=== PATIENT | female | born 1950 | race Caucasian/White ===

== ENCOUNTER 2023-10-03 14:29 | Emergency (ER) | payer MEDICARE, SELFPAY ==
[2023-10-03 14:31] VITALS: BP 122/63; PULSE 102; RESP 18; TEMP 36.1; O2SAT 99
--- NOTE | 2023-10-03 15:21 | RAD_ITS ---
STUDY: X-RAY - PELVIS REASON FOR EXAM: Female, 72 years old. Injury/Pain TECHNIQUE: One view of the pelvis was obtained. COMPARISON: None. FINDINGS: There is a non-specific bowel gas pattern. Normal visualized soft tissue structures. Normal bilateral iliac wings, sacroiliac joints and visualized sacrum. Normal visualized bilateral superior and inferior pubic rami. Normal pubic symphysis. Normal ischial tuberosities. No definitive evidence for acute pelvic or hip fracture . However views of the hips is limited and routine study of the hips is recommended for further evaluation if clinically warranted RAD/Pelvis 1 or 2 Views IMPRESSION: No evidence for acute pelvic fracture or definitive evidence for hip fracture Electronically Signed: Matt Johnson MD at 16:53 EST Reading Location ID and State: [facility] / [place] Tel , Service support ,
--- NOTE | 2023-10-03 15:21 | RAD_ITS ---
STUDY: X-RAY - CERVICAL SPINE REASON FOR EXAM: Female, 72 years old. Injury/Pain TECHNIQUE: 4 view(s) of the cervical spine were obtained. COMPARISON: None FINDINGS: Normal anterior atlantoaxial articulation. Normal odontoid process. Loss of normal lordotic curvature possibly due to muscle spasm or positioning artifact. No evidence for acute fracture or subluxation. Grade 1 spondylolisthesis at C5-6 Narrowed C4-5, C5-6 and C6-7 disc spaces with endplate spurring The soft tissue structures are unremarkable. RAD/Cerv Spine 2 or 3 Views IMPRESSION: Moderate spondylosis. No acute fracture or subluxation Electronically Signed: Matt Johnson MD at 16:59 EST ,
--- NOTE | 2023-10-03 15:21 | RAD_ITS ---
STUDY: X-RAY - THORACIC SPINE REASON FOR EXAM: Female, 72 years old. Injury/Pain TECHNIQUE: AP and lateral view(s) of the thoracic spine were obtained. COMPARISON: None. FINDINGS: Normal kyphosis of the thoracic spine. There is no substantial scoliosis. No evidence for acute fracture or subluxation. No lytic or sclerotic bony lesions. Minor multilevel disc space narrowing and endplate spurring. The soft tissue structures are unremarkable. RAD/Thoracic Spine 3 Views IMPRESSION: Mild spondylosis. No acute fracture or subluxation Electronically Signed: Matt Johnson MD at 16:54 EST ,
--- NOTE | 2023-10-03 15:21 | RAD_ITS ---
STUDY: X-RAY - LUMBAR SPINE REASON FOR EXAM: Female, 72 years old. Injury/Pain TECHNIQUE: AP and lateral view(s) of the lumbar spine were obtained. COMPARISON: None FINDINGS: Normal lumbar lordosis. There is no substantial scoliosis. There is a normal alignment of the vertebrae. There is mild wedging of the anterior superior endplate of L2 and subtle radiolucency suggesting acute fracture. Disc space heights are well-maintained although there is mild multilevel endplate spurring.. The soft tissue structures are unremarkable. RAD/Lumbar Spine 2 or 3 Views IMPRESSION: Suspect acute mild compression of anterior superior endplate of L2. CT would be useful for more definitive evaluation if indicated Electronically Signed: Matt Johnson MD at 16:57 EST ,
--- NOTE | 2023-10-03 15:38 | EDS_ITS ---
HPI History of Present Illness Chief Complaint: Fall Detail of Chief Complaint: Injury to neck, upper and lower back due to fall Informant: patient Onset/Context/Timing Onset: Today and Hours Mechanism/Context: Blunt Injury and Fall Quality of Pain: - (Mid and lower back as well as neck) Current Severity: Mild Worsened by: Movement and palpation Relieved by: Nothing Associated Symptoms Associated Symptoms: Negative for Parasthesias, Weakness, Loss of function, Inability to ambulate, Loss of consciousness or Amnesia Narrative Narrative: Patient is a 72-year-old woman with history of alcoholism who recently went thro [facility]. She presents after fall getting out of car. She had dizziness. She had dizziness for years. They attributed this to her alcohol use. She denies headache, visual, ocular auditory symptoms. Denies ringing in ears or decreased hearing. She denies neck pain. She denies paresthesia, anesthesia motors upper or lower extremity. She denies chest pain or shortness of breath. She denies nausea or vomiting. She urinated and did not noted blood. Prior similar symptoms: No Recent Illness/Hospitalization: No PFSH PFSH Allergy/AdvReac Type Severity Reaction Status Date / Time bacitracin Allergy Intermediate Swelling Verified 10/03/23 14:34 [From Triple Antibiotic] neomycin Allergy Intermediate Swelling Verified 10/03/23 14:34 [From Triple Antibiotic] polymyxin B Allergy Intermediate Swelling Verified 10/03/23 14:34 [From Triple Antibiotic] propranolol [From Inderal LA] Allergy Intermediate Shortness Verified 10/03/23 14:34 of breath omeprazole [From Prilosec] AdvReac Intermediate Angioedema Verified 10/03/23 14:34 biotin AdvReac Mild Vomiting Verified 10/03/23 14:34 bupropion [From Wellbutrin] AdvReac Mild RASH Verified 10/03/23 14:34 Social History (Updated 10/03/23 @ 15:[address] Neo Hurley MD) Smoking Status: Never smoker alcohol intake: former substance use type: does not use ROS ROS ED Constitutional Constitutional ED: Denies chills or fever(s) Eyes Eyes: Denies blurry vision or change in vision ENT ENT ED: Reports other Details: Denies ringing or ears or decreased hearing. ; Denies ear pain, rhinorrhea or sore throat Cardiovascular Cardiovascular: Denies chest pain or palpitations Respiratory/Chest Respiratory/Chest: Denies cough, dyspnea or dyspnea on exertion Gastrointestinal Gastrointestinal: Denies abdominal pain, nausea or vomiting Genitourinary Genitourinary ED: Denies dysuria, hematuria or urinary frequency Musculoskeletal Musculoskeletal: Reports back pain; Denies arthralgias, myalgias or neck pain Integumentary Denies Abrasions or rash Neurologic Neurologic: Denies headache(s), paresthesias or weakness Endocrine Endocrinology: Denies cold intolerance or heat intolerance Hematologic/Lymphatic Hematologic/Lymphatic: Denies easy bleeding or easy bruising EXAM Physical Exam Const Vital Signs: 10/03/23 14:31 10/03/23 14:32 Temperature 96.9 F L Temperature Source Temporal Pulse Rate 102 H Respiratory Rate 18 Respiratory Effort Normal Respiratory Depth Normal Respiratory Pattern Normal Blood Pressure 122/63 H Blood Pressure Mean 82 Pulse Ox 99 Oxygen Delivery Method Room Air Positive well nourished and well developed General Appearance ED: well developed and NAD HEENT Reports TM's clear atraumatic; Negative for tenderness Nose: Negative for septum abnormal Tympanic Membrane ED: Yes TM's clear Eyes PERRL and EOMs intact bilaterally General Eye ED: Yes other Other Details: There is no subconjunctival hemorrhage. There is no nystagmus. Neck full ROM Neck Narrative: Patient grimaces with flexion and rotation of the right or left. She did not have midline tenderness prior to testing range of motion. Chest Wall inspection of chest normal and palpation of chest normal Resp normal respiratory effort and clear to auscultation bilaterally Cardio regular rhythm, S1 normal heart sound, S2 normal heart sound and no murmurs Rate: regular rate GI normal to inspection, nondistended, normoactive bowel sounds, non-tender, non- distended and no masses Palpation: soft Back/Spine normal to inspection; Negative for no thoracic nor lumbar tenderness Back/Spine Narrative: There is pain outpatient lower lumbar vertebrae. There is no pain ovation over the iliac wing right or left. There is no pain the patient with the pubic symphysis. General Back: Negative for CVA tenderness Thoracic Spine / Upper Back: thoracic spinal tenderness T10, T11 and T12 Lumbar Spine / Lower Back: straight leg raise negative bilaterally Extremity normal to inspection and full ROM Extremity Narrative: Terrence Rosalinda 4 test causes no pain in the hip or low back. General Extremety ED: Negative for deformity General Extremity: Negative for deformity Neuro oriented x3, CN's II-XII intact bilaterally, moves all extremities, no focal motor deficits and no sensory deficits noted [place] Coma Scale: document GCS findings Spontaneous Obeys Commands Oriented 15 Plantar Reflex: Downgoing: bilateral Psych mental status grossly normal and thought process normal Skin no rashes or lesions noted, no wounds, skin turgor normal and no jaundice MDM MDM MDM Narrative Medical decision making narrative: C-spine cannot be cleared per Nexus criteria imaging was obtained. Imaging of the thoracic and lumbar vertebrae were obtained as well. Because of her pain in the right inguinal area x-ray of the pelvis was obtained to assess for superior pubic rami fracture. She apparently landed on her right side. Radiography Chest X-Ray - ED: Read by ED Physician Diagnostic Testing: Clinical Impression(s) from Imaging Studies Cervical Spine X-Ray 10/03/23 15:21 IMPRESSION: Moderate spondylosis. No acute fracture or subluxation Electronically Signed: Matt Johnson MD at 16:59 EST Reading Location ID and State: [facility] / [place] Tel [phone], Service support , Lumbar Spine X-Ray 10/03/23 15:21 IMPRESSION: Suspect acute mild compression of anterior superior endplate of L2. CT would be useful for more definitive evaluation if indicated Electronically Signed: Matt Johnson MD at 16:57 EST , Pelvis X-Ray 10/03/23 15:21 IMPRESSION: No evidence for acute pelvic fracture or definitive evidence for hip fracture Electronically Signed: Matt Johnson MD at 16:53 EST , Thoracic Spine X-Ray 10/03/23 15:21 IMPRESSION: Mild spondylosis. No acute fracture or subluxation Electronically Signed: Matt Johnson MD at 16:54 EST , 3 views x-ray of the cervical spine was obtained. Patient has no evidence of fracture, subluxation dislocation. There is no prevertebral soft tissue s welling. There is minimal degenerative changes noted. 2 view x-ray of thoracic spine reveals minimal degenerative changes with atherosclerotic disease of the aorta. There is no dilatation. There is no fracture or subluxation noted. 2 view x-ray of the LS-spine reveals minimal degenerative changes. There is atherosclerotic disease of the distal aorta and iliacs. There is no evidence of fracture, dislocation or subluxation. There is no evidence of spondylolisthesis or spondylosis. Single view x-ray of the pelvis is negative for fracture or any abnormality. Nonseptic gas pattern was noted. All films were independent reviewed interpreted by me at 1606. Treatment and Re-Evaluation Narrative: Patient was reassessed at 1700. Patient does report improvement. She was told that she will feel worse and hurt more places over the next 24 to 48 hours and will hurt for several days if not up to a week Discharge Plan Triage Chief Complaint: Fall ED Provider: Neo Hurley Dx/Rx/DC Orders Clinical Impression: Injury due to fall, Acute cervical myofascial strain, Acute midline thoracic back pain, Contusion of pelvis, Acute lumbosacral myofascial strain Instructions: ED Back Sprain/Strain, ED Neck Sprain or Strain Primary Care Provider: Zheng Kwan Referrals: Zheng Kwan MD [Primary Care Provider] - 1 Week if not improving Activity Restrictions/Additional Instructions: 1. You may take 4 ibuprofen tablets every 8 hours or 2 Aleve tablets every 12 hours for next 3 to 5 days 2. Apply ice to areas of discomfort 6-10 times a day for the next 3 to 5 days. 3. Do not use heat because this may make your pain worse 4. You may hurt in more places and you presently do 5. You may hurt for 3-7 more days Disposition Disposition: Home, Self Care
[2023-10-03] MEDS: Ketorolac 30 MG/ML Syringe IM (16:13)
[2023-10-03 17:30] VITALS: BP 146/76; PULSE 89; RESP 16; TEMP 36.4; O2SAT 99; BMI 31.5
== END 2023-10-03 17:31 | disposition home or self-care (01) ==
PROVIDERS: Emergency Provider Emergency Medicine; PCP Internal Medicine; Visit Provider Emergency Medicine
DX: S39.012A Strain of muscle, fascia and tendon of lower back, initial encounter (principal); S16.1XXA Strain of muscle, fascia and tendon at neck level, initial encounter; W19.XXXA Unspecified fall, initial encounter
CPT/HCPCS: 72040; 72072; 72100; 72170; 96372; 99282

== ENCOUNTER 2023-12-13 11:00 | Outpatient (RCR) | payer MEDICARE, SELFPAY ==
--- NOTE | 2023-08-19 13:25 | HP.PTEVAL ---
Patient's Visit Information Visit Information Visit Information: KENNY LEE is a 72 year old F referred to Physical Therapy by Dr. Zheng Kwan MD with a diagnosis of Unsteady gait. Date of Evaluation: 08/19/23 Physical Therapist: Paul Reza, DPT, OCS, CSCS Visit Plan Frequency: 3x /Week Duration: 4-6 Weeks Plan: 3x/week for 4-6 weeks for 1. LE core and postural strength to HEP. 2. Gait with wh walker for speed and progressing to LRD(pt does not wish to use walker and compliance will be questionable 3. Activity, bike as she has one at home Subjective Subjective: I can't walk. Not sure why. Primary sent her. People say she sits too much. Maybe going through alcohol withdrawal. Has had trouble walking for a couple years. Changing blood pressure meds and sometimes feels like she might faint. Walks at home holding onto things short distances. sits most of day in recliner watching TV or games. Has walker with wheels. Has fallen a few months ago at night not sure why. Sleep is OK. Sometimes has some neck pain. Neck feels weak. Hobbies: not anymore. No regular exercise. On depression meds. Basic ADLs dressing I, bathroom I, shower I walk in shower. Has two steps to garage and 2 to the pool , has railing but does not leave house herself. wants to walk normal which has not happened since last summer. Issue is sometimes lightheadedness with standing up. Objective Objective: Pushed back to PT eval room in . feels lightheaded at times upon standing , has to hold on to ambulate safely but refuses to use wh walker. Ambulates with CGA very short steps reaching for wall 140 feet today, Some stops for lightheadedness but overall does well with poor weight shift. With wh walker takes longer steps but still short, more confident and slightly faster. Transfer WC I. romberg eo and ec 30 seconds. LE AROM WFL, HS max tight at -40 90/90 test. Hip and knee AROM WFL to neutral extension of hip. ankles AROM WFL tightness in gastroc. reflexes 2/3 patella adn achilles Strength 3 in hips, 3+ in knees, 4- in ankles without myotomal problems. sensation WNL to gross light touch. coordination to reciprocal toe tap and heel tap is good. Very flat affect, ee-ore type depressive interactions without facial expressions today. Unable to do FGa without AD today TUG with wh walker 28 seconds Balance/Special Test Scores Lower Extremity Functional Score: 18 Goals Goal 1:: TUG < 20 seconds Goal Time Frame: 4-6 Weeks Goal 2:: I approproiate HEP for gait and LE/core/postural strength via HEP Goal Time Frame: 4-6 Weeks Goal 3:: Walk into and out of PT with LRD mod I Goal Time Frame: 4-6 Weeks Goal 4:: Able to tolerate FGA to properly assess balance Goal Time Frame: 4-6 Weeks Rehabilitation Potential Physical Therapy Diagnosis: weakness and sedentarism and imbalance leading to poor mobility exacerbated by withdrawal Rehabilitation Potential: Fair Anticipated Interventions Patient/Client Instruction: Educate patient on: Condition and Plan of Care For the Purpose of:: To improve muscle performance and motor function and To increase tolerance to activity/condition/position Therapeutic Exercise to Include: Strength training, Balance training, Postural training, Flexibilty training and Gait and locomotor training For the Purpose of:: To improve muscle performance and motor function, To increase tolerance to activity/condition/position, To improve ability of physical actions for home/community/work/leisure and To improve gait and locomotor functions Text: Thank you for the opportunity to evaluate your patient. For Medicare and Medicare HMO plans, please review the plan of care and approve it. It will need to be FAXED BACK to us at [phone] for Medicare purposes. For Medicare only, by signing this I certify the plan of care. Please let me know if there are questions or concerns regarding this plan of care. Physician Signature: Date:
--- NOTE | 2023-09-14 12:04 | HP.PTREVAL ---
Re-Evaluation Intro: Dr. Zheng Kwan MD, It has been my pleasure to treat KENNY LEE over the last 12 visits for Unsteady gait. Please see the progress note below for an update on the physical therapy plan of care! Subjective Subjective: Doing OK.Better than a month ago. Easier to walk. No falls. HEP: regularly much of time. Sleep is OK. Basic ADLs all I. Hobbies: would like to read. Hard to focus. Has pool she wants to get in next summer. says movements are better at home, appetite is back. Looks and feels better. Still shuffles somewhat when she gets tired. Wants to walk outside. Has gravel driveway. Uses walker away from house. Objective Objective/Function: 10 TUG FGA tolerable and 24 today Much better walking into PT with wh walker and climbing steps with one rail Walking in dept without AD today. happier and smiling often. Plan Plan Plan: 3x/week 4 weeks to work toward I gym program for overall body, funcitonal balance improvements with gait , steps, bending and recovering, floor trasnfer and overall strength Balance/Gait/Functional tests Balance/Special Test Scores Functional Gait Assessment Score: 24 % Disability: 20.0000 Lower Extremity Functional Score: 38 Goals Goals Goal 1:: TUG < 20 seconds Goal Time Frame: 4-6 Weeks Goal Progress: Goal Met Goal 2:: I approproiate HEP for gait and LE/core/postural strength via HEP Goal Time Frame: 4-6 Weeks Goal Progress: Goal Met Goal 3:: Walk into and out of PT with LRD mod I Goal Time Frame: 4-6 Weeks Goal Progress: walker., met Goal 4:: Able to tolerate FGA to properly assess balance Goal Time Frame: 4-6 Weeks Goal Progress: Goal Met Goal 5:: Walk in driveway withlut hesitation or concerns at home Goal Time Frame: 4-6 Weeks Goal 6:: I appropriate gym program for strength to continue via ken[employer]ie Goal Time Frame: 4-6 Weeks Anticipated Interventions Anticipated Interventions Patient/Client Instruction: Educate patient on: Condition and Plan of Care For the Purpose of:: To improve muscle performance and motor function and To increase tolerance to activity/condition/position Therapeutic Exercise to Include: Strength training, Balance training, Postural training, Flexibilty training and Gait and locomotor training For the Purpose of:: To improve muscle performance and motor function, To increase tolerance to activity/condition/position, To improve ability of physical actions for home/community/work/leisure and To improve gait and locomotor functions Re-Evaluation Ending Re-evaluation ending: Please do not hesitate to contact me at [phone] by phone or if you have questions or concerns regarding this new plan of care! Sincerely, Paul Reza, DPT, OCS, CSCS
--- NOTE | 2023-10-14 12:39 | HP.PTREVAL_ITS ---
Re-Evaluation Intro: Dr. Zheng Kwan MD, It has been my pleasure to treat KENNY LEE over the last 24 visits for Unsteady gait. Please see the progress note below for an update on the physical therapy plan of care! Subjective Subjective: Fell two weeks ago getting out of car. Back still hurts . Went to ER and had x rays. Back is improving. Mobility was improving prior. Less active in winter. Objective Objective/Function: Walking I with one stumble on R foot today but otherwise safe and I. Steps weak R leg but able with one rail up and down. Plan Plan Plan: 3x/week for gait progression speed and funciton, gym exercise to I or with husbands help to do via [employer] after October. LB ROM(fis given today) to help with pain Consder pool once hers is open for instruction. Fall has set her back with pain in LB and compliance has been an issue, she is still progressing nicely toward goals but not abkle to be I yet in gym and approrpiate to continue working toward this. New goals, Fair prognosis with compliance. Balance/Gait/Functional tests Balance/Special Test Scores Functional Gait Assessment Score: 22 % Disability: 26.6700 Lower Extremity Functional Score: 51 Goals Goals Goal 1:: TUG < 20 seconds Goal Time Frame: 4-6 Weeks Goal Progress: Goal Met Goal 2:: 15 30 sec sit to stand test Goal Time Frame: 2-4 Weeks Goal Progress: NEW GOAL Goal 3:: Walk into and out of PT with LRD mod I Goal Time Frame: 4-6 Weeks Goal Progress: Goal Met Goal 4:: FGA 25/30 Goal Time Frame: 2-4 Weeks Goal Progress: NEW GOAL Goal 5:: Walk in driveway withlut hesitation or concerns at home Goal Time Frame: 4-6 Weeks Goal Progress: Progressing Goal 6:: I appropriate gym program for strength to continue via [employer] Goal Time Frame: 4-6 Weeks Goal Progress: needs help,approp Anticipated Interventions Anticipated Interventions Patient/Client Instruction: Educate patient on: Condition and Plan of Care For the Purpose of:: To improve muscle performance and motor function and To increase tolerance to activity/condition/position Therapeutic Exercise to Include: Strength training, Balance training, Postural training, Flexibilty training and Gait and locomotor training For the Purpose of:: To improve muscle performance and motor function, To increase tolerance to activity/condition/position, To improve ability of physical actions for home/community/work/leisure and To improve gait and locomotor functions Re-Evaluation Ending Re-evaluation ending: Please do not hesitate to contact me at [phone] by phone or if you have questions or concerns regarding this new plan of care! Sincerely, Paul Reza, DPT, OCS, CSCS
--- NOTE | 2023-11-09 11:28 | HP.PTREVAL ---
Re-Evaluation Intro: Dr. Zheng Kwan MD, It has been my pleasure to treat KENNY LEE over the last 35 visits for Unsteady gait. Please see the progress note below for an update on the physical therapy plan of care! Subjective Subjective: OK. Activity level is good when I want it to be. Walking limited distance, legs get shaky and tight. Sleep is OK. HEP: Will join and continue in gym. To doctor in January. Basic ADLS at home are going OK. Hobbies used to be cross stitch adn reading. Objective Objective/Function: -1 from normal on 30 sec sit to stand and FGA is 28 and much improved. Walking well today, wquetionable motivation to continue on own in gym 3x/.week but wants to try and feels ready. Plan Plan Plan: f/u one month for maintenance goal, recheck of FGA adn 30 sec sit to stand and check on ex progression. See maintenance goal and fair prognosis Balance/Gait/Functional tests Balance/Special Test Scores Functional Gait Assessment Score: 28 % Disability: 6.6700 Lower Extremity Functional Score: 57 30 Second Chair Rise Test Seconds: 13 Goals Goals Goal 1:: Maintenance of 28/30 FGA 13 on sit to stand test adn 2-3x/week in gym workout. Goal Time Frame: 4-6 Weeks Goal Progress: NEW GOAL Goal 2:: 15 30 sec sit to stand test Goal Time Frame: 2-4 Weeks Goal Progress: 13 Goal 3:: Walk into and out of PT with LRD mod I Goal Time Frame: 4-6 Weeks Goal Progress: Goal Met Goal 4:: FGA 25/30 Goal Time Frame: 2-4 Weeks Goal Progress: Goal Met Goal 5:: Walk in driveway withlut hesitation or concerns at home Goal Time Frame: 4-6 Weeks Goal Progress: Progressing Goal 6:: I appropriate gym program for strength to continue via [employer] Goal Time Frame: 4-6 Weeks Goal Progress: Goal Met Anticipated Interventions Anticipated Interventions Patient/Client Instruction: Educate patient on: Condition and Plan of Care For the Purpose of:: To improve muscle performance and motor function and To increase tolerance to activity/condition/position Therapeutic Exercise to Include: Strength training, Balance training, Postural training, Flexibilty training and Gait and locomotor training For the Purpose of:: To improve muscle performance and motor function, To increase tolerance to activity/condition/position, To improve ability of physical actions for home/community/work/leisure and To improve gait and locomotor functions Re-Evaluation Ending Re-evaluation ending: Please do not hesitate to contact me at [phone] by phone or if you have questions or concerns regarding this new plan of care! Sincerely, Paul Reza, DPT, OCS, CSCS
--- NOTE | 2023-12-13 11:34 | HP.PTDCSUM ---
Discharge Summary D/C summary: It has been my pleasure to treat KENNY LEE referred by Dr. Zheng Kwan MD, with the diagnosis of Unsteady gait for a total of 36 visit(s). Discharge Date: 12/13/23 Please see the following information for a summary of their discharge status. Subjective Subjective: Been in regularly for the last month. Missed a week with med change . Got back in after that. No problems with pain. No falls. Activities at home are normal but admittedly not very active. Pool will open in a week. Pain Low back: Pain Intensity (Out of 10): 0 Overall Improvement % Improvement: 95 Objective Objective/Function: +1 on 30 sec sit to stand over last month and FGA maintaining at aobve normal. steps reciprocal with one rail and still show some weakness. Walking is I without deviaitons but can be sloppy lazy on lifting legs. Goals Goal 1:: Maintenance of FGA 13 on sit to stand test adn 2-3x/week in gym workout. Goal Progress: Goal Met Goal 2:: 15 30 sec sit to stand test Goal Progress: 14 Goal 3:: Walk into and out of PT with LRD mod I Goal Progress: Goal Met Goal 4:: FGA Goal Progress: Goal Met Goal 5:: Walk in driveway withlut hesitation or concerns at home Goal Progress: not interested Goal 6:: I appropriate gym program for strength to continue via keny xie Goal Progress: Goal Met Plan Plan: d/c to I gym and HEP D/C Information Discharge Comments: To doctor in one month. d/c sentence: If there are questions or concerns regarding this patient's physical therapy, please feel free to call me at [phone]. Thank you for the referral of this patient. Sincerely, Paul Reza, DPT, OCS, CSCS Balance/Gait/Functional tests Balance/Special Test Scores Functional Gait Assessment Score: 28 % Disability: 6.6700 Lower Extremity Functional Score: 57 30 Second Chair Rise Test Seconds: 13 Improvement % Improvement: 95
== END 2023-12-13 14:13 | disposition home or self-care (01) ==
LOC: PT 11:00
PROVIDERS: PCP Internal Medicine; Referring Provider Internal Medicine; Visit Provider Internal Medicine
DX: R26.81 Unsteadiness on feet (principal)
CPT/HCPCS: 97110; 97162; 97530